=== PATIENT | male | born 1995 | race Caucasian/White ===

== ENCOUNTER 2021-01-10 17:09 | Emergency (ER) | payer SELFPAY ==
[~2021-01-10] VITALS: Ht 162.6 cm; Wt 55.3 kg
[2021-01-10] MEDS ORDERED: SULFAMETHOXAZOLE/TRIMETHOPR DS 1 TABLET PO ONE (18:00)
[2021-01-10 18:10] VITALS: BP_SYST 137
== END 2021-01-10 18:06 | disposition home or self-care (01) ==
LOC: SED 17:09
DX: L03.113 Cellulitis of right upper limb (principal)
CPT/HCPCS: 99283